=== PATIENT | male | born 1955 | race Caucasian/White ===

== ENCOUNTER 2018-10-20 08:30 | Inpatient (IN) | payer OTHER ==
[~2018-10-20] VITALS: Ht 170.2 cm; Wt 77.1 kg
[2018-10-20] MEDS ORDERED: FORTAMET1000 MG PO (17:23)
[2018-10-20] MEDS ORDERED: LOSARTAN POTAS100 MG PO (17:23)
[2018-10-20] MEDS ORDERED: TAMS0.4C PO (17:24)
[2018-10-20] MEDS ORDERED: LANTUS SOL100 UNIT/1 (17:24)
[2018-10-20] MEDS ORDERED: JANUVIA100 MG PO (17:24)
== END 2018-10-23 16:20 | disposition home or self-care (01) | DRG 470 ==
LOC: ADM 08:30 → EDSTATUS 08:30 → O/R 10-21 08:30 → SURH 10-21 10:13 → O/R 10-21 13:30 → SURH 10-21 16:18
PROVIDERS: Orthopaedic Surgery
PROC: 0SRD0J9 Replacement of Left Knee Joint with Synthetic Substitute, Cemented, Open Approach (ICD-10-PCS; principal; 2018-10-21 13:30)
DX: M17.12 Unilateral primary osteoarthritis, left knee (principal); D62 Acute posthemorrhagic anemia; E11.9 Type 2 diabetes mellitus without complications; I10 Essential (primary) hypertension; N40.0 Benign prostatic hyperplasia without lower urinary tract symptoms; Z79.4 Long term (current) use of insulin; Z88.0 Allergy status to penicillin